=== PATIENT | female | born 1940 | race Two or more races ===

== ENCOUNTER 2023-12-19 12:15 | Inpatient (IN) | payer OTHER ==
[~2023-12-19] VITALS: Ht 160 cm; Wt 48.1 kg
[~2023-12-19 12:15] MED LIST: FERROUS SULFAT325 MG PO
[2023-12-19] MEDS ORDERED: LEVOTHYROXINE25 MCG PO (14:34)
[2023-12-22] MEDS ORDERED: DEXTROSE 50 % IN WATER 0.5 G/ML DISP.SYRIN IV PRN (09:45)
[2023-12-22] MEDS ORDERED: 0.9 % SODIUM CHLORIDE 1,000 ML IV SCH (09:45)
[2023-12-22] MEDS ORDERED: MORPHINE SULFATE 4 MG/ML CARTRIDGE IV PRN (09:45)
[2023-12-22] MEDS ORDERED: ONDANSETRON HCL 2 MG/ML VIAL IV PRN (09:45)
[2023-12-22] MEDS ORDERED: OxyCODONE HCL 5 MG TABLET (ROXICODONE) PO PRN (09:45)
[2023-12-22] MEDS ORDERED: BUPIVACAINE HCL 30 ML VIAL IV ONE (10:30)
[2023-12-22] MEDS ORDERED: DIBUCAINE 30 GM TUBE RECTAL ONE (10:30)
[2023-12-22] MEDS ORDERED: POVIDONE-IODINE 118 ML BOTT TOP ONE (10:30)
[2023-12-22] MEDS ORDERED: LIDOCAINE HCL 1% 20ML VIAL IJ ONE (10:30)
[2023-12-22] MEDS ORDERED: HEMOSTATIC MATRIX 1 KIT KIT TOP ONE (10:30)
[2023-12-22] MEDS ORDERED: METROnidazole 500 MG TABLET PO ONE (10:30)
[2023-12-22] MEDS ORDERED: CEFTRIAXONE SODIUM 2,000 MG VIAL IV ONE (10:30)
[2023-12-22 12:45] LABS: HEMATOCRIT 24.4 % (36.0-45.00); MEAN CELL VOLUME 77.4 fL (80.00-100.00); MEAN CORPUSCULAR HGB CONC 32.4 g/dl (32.0-36.0); PLATELET COUNT 506 K/uL (150-450); RED BLOOD COUNT 3.15 M/uL (4.00-6.00); RED CELL DISTRIBUTION WIDTH 20.3 % (11.5-14.5)
[2023-12-22 12:51] LABS: HEMOGLOBIN 7.9 g/dL (12.0-15.00)
[2023-12-22] MEDS ORDERED: HYOSCYAMINE SULFATE 0.125 MG TAB.SUBL SL SCH (13:00)
[2023-12-22 13:49] LABS: ALBUMIN 2.5 gm/dL (3.4-5.0); CALCIUM 8.6 mg/dL (8.5-10.1); CREATININE SERUM 0.55 mg/dL (0.55-1.02); GFR 106.08; MAGNESIUM 2.1 mg/dL (1.8-2.4); PHOSPHOROUS 3.6 mg/dL (2.5-4.9); POTASSIUM 4.02 mEq/L (3.5-5.1)
[2023-12-22] MEDS ORDERED: ACETAMINOPHEN 500 MG GEL..CAP PO SCH (14:00)
[2023-12-22] MEDS ORDERED: POLYETHYLENE GLYCOL 3350 17 GM BLIST.PACK PO SCH (17:00)
[2023-12-22] MEDS ORDERED: METRONIDAZOLE/SODIUM CHLORIDE 500 MG/100 ML PIGGYBACK IV SCH (17:00)
[2023-12-22] MEDS ORDERED: FAMOTIDINE/PF 20 MG/2 ML VIAL IV PUSH SCH (21:00)
[2023-12-23 14:34] LABS: HEMATOCRIT 33.9 % (36.0-45.00); HEMOGLOBIN 11.3 g/dL (12.0-15.00); MEAN CELL VOLUME 79.5 fL (80.00-100.00); MEAN CORPUSCULAR HEMOGLOBIN 26.5 pg (27.00-32.0); MEAN CORPUSCULAR HGB CONC 33.3 g/dl (32.0-36.0); PLATELET COUNT 464 K/uL (150-450); RED BLOOD COUNT 4.26 M/uL (4.00-6.00); RED CELL DISTRIBUTION WIDTH 18.4 % (11.5-14.5)
[2023-12-23 15:11] LABS: ALBUMIN 2.4 gm/dL (3.4-5.0); CALCIUM 8.5 mg/dL (8.5-10.1); CREATININE SERUM 0.56 mg/dL (0.55-1.02); GFR 103.9; MAGNESIUM 1.9 mg/dL (1.8-2.4); PHOSPHOROUS 2.2 mg/dL (2.5-4.9); POTASSIUM 3.49 mEq/L (3.5-5.1)
[2023-12-23] MEDS ORDERED: ENOXAPARIN SODIUM 40 MG/0.4 ML SYRINGE SUBCUTANEO SCH (17:00)
[2023-12-24] MEDS ORDERED: ENOXAPARIN SODIUM 40 MG/0.4 ML SYRINGE SUBCUTANEO SCH (09:00)
== END 2023-12-23 19:35 | disposition home or self-care (01) | DRG 376 ==
LOC: O/R 12-22 05:35 → SURH 12-22 05:35 → SURG 12-22 09:00 → SURH 12-22 11:39 → SURG 12-22 12:15 → SURH 12-23 19:35
PROVIDERS: ADMIT Surgery; ATTEND Surgery
PROC: 3E0T3BZ Introduction of Anesthetic Agent into Peripheral Nerves and Plexi, Percutaneous Approach (ICD-10-PCS; 2023-12-22)
PROC: 0DBP8ZZ Excision of Rectum, Via Natural or Artificial Opening Endoscopic (ICD-10-PCS; principal; 2023-12-22 09:00)
DX: C20 Malignant neoplasm of rectum (principal); Z20.822 Contact with and (suspected) exposure to COVID-19
CPT/HCPCS: 0184T; 64430

== ENCOUNTER 2024-05-31 08:19 | Outpatient (CLI) | payer OTHER ==
[~2024-05-31 08:19] MED LIST changes: +LEVOTHYROXINE25 MCG PO
== END 2024-05-31 08:24 | disposition home or self-care (01) ==
LOC: TOM 08:19 → MRI 08:19 → TOM 08:24
PROVIDERS: ATTEND Internal Medicine Hematology & Oncology
DX: C20 Malignant neoplasm of rectum (principal); Z51.11 Encounter for antineoplastic chemotherapy

== ENCOUNTER 2024-11-09 06:49 | Day surgery (SDC) | payer OTHER ==
[2024-11-05 08:22] LABS: PH,URINE 5.5 (5.0-8.0); URINE APPEARANCE Clear; URINE BILIRRUBIN Negative (NEGATIVE); URINE BLOOD Small; URINE COLOR Yellow; URINE GLUCOSE Negative (NEGATIVE); URINE KETONE Negative (NEGATIVE); URINE LEUKOCYTE Negative; URINE NITRATE Negative; URINE PROTEIN Negative (NEGATIVE); URINE UROBILINOGEN 0.2 E.U./dl
[2024-11-05 08:23] LABS: BASO % 0.8 % (0.1-1.2); EOS # 0.13 (0.04-0.54); EOS % 2.1 % (0.7-7.0); HEMATOCRIT 38.3 % (34.1-44.9); HEMOGLOBIN 12.4 g/dL (11.2-15.7); LYMPH # 0.94 (1.18-3.74); LYMPH % 14.9 % (19.3-53.1); MEAN CORPUSCULAR HEMOGLOBIN 31.2 pg (25.6-32.2); MONO # 0.45 (0.24-0.82); MONO % 7.1 % (4.7-12.5); NEUT # 4.73 (1.56-6.13); NEUT % 74.8 % (34.0-71.1); PLATELET COUNT 299 K/uL (163-369); RED BLOOD COUNT 3.98 M/uL (3.93-5.22); RED CELL DISTRIBUTION WIDTH 12.4 % (11.6-14.4)
[2024-11-05 08:26] LABS: URINE EPITHELIAL CELLS 3.3 uL (0.0-38.8); URINE RBC 13.1 uL (0.0-20.8)
[2024-11-05 08:42] LABS: URINE BACTERIA 3.6 uL (0.0-1933)
[2024-11-05 08:45] VITALS: BP 141/84
[2024-11-05 08:56] LABS: INR 1.1; PARTIAL THROMBOPLASTIN TIME 29.9 SECONDS (22.0-34.0); PROTHROMBIN TIME 11.9 SECONDS (9.0-11.5)
[2024-11-05 09:17] LABS: ALBUMIN 3.5 gm/dL (3.4-5.0); BILIRUBIN TOTAL 0.56 mg/dL (0.3-1.2); CREATININE SERUM 0.64 mg/dL (0.55-1.02); GFR 88.84; POTASSIUM 4.54 mEq/L (3.5-5.1); TOTAL PROTEIN 7.5 gm/dL (6.4-8.2); TSH 1.7 uIU/mL (0.358-3.74)
[~2024-11-09] VITALS: Ht 160 cm; Wt 59.0 kg
[~2024-11-09 06:49] MED LIST changes: +AMLODIPINE-OLM1 EAC2
[2024-11-09] MEDS ORDERED: CEFAZOLIN SODIUM 1,000 MG VIAL ONE ×2 (08:22→13:46)
[2024-11-09] MEDS ORDERED: HEPARIN SODIUM,PORCINE 500 UNITS/5 ML VIAL IV ONE (09:31)
[2024-11-09] MEDS ORDERED: LIDOCAINE HCL 1% 20 ML VIAL IJ ONE ×2 (09:31→10:07)
[2024-11-09] MEDS ORDERED: CEFAZOLIN SODIUM 1,000 MG VIAL IV SCH (11:30)
== END 2024-11-09 14:30 | disposition home or self-care (01) ==
LOC: CIR.AMB 06:49
PROVIDERS: ATTEND Specialist
DX: C20 Malignant neoplasm of rectum (principal)
CPT/HCPCS: 36561; C1751